=== PATIENT | male | born 1990 | race Caucasian/White ===

== ENCOUNTER → 2019-12-17 | Outpatient (CLI) | payer OTHER ==
--- NOTE | 2019-12-17 16:00 | XR ---
EXAMINATION TYPE: XR thoracic spine complete DATE OF EXAM: 12/17/2019 COMPARISON: None HISTORY: Thoracic strain TECHNIQUE: Three-view thoracic spine FINDINGS: There are 12 thoracic type vertebral bodies. Pedicles are intact. Disc heights are preserve d. Vertebral body heights are preserved. IMPRESSION: 1. Normal three-view thoracic spine
--- NOTE | 2019-12-17 16:02 | XR ---
EXAMINATION TYPE: XR lumbar spine 2 or 3V DATE OF EXAM: 12/17/2019 COMPARISON: None HISTORY: Back pain thoracic pain TECHNIQUE: Three-view lumbar spine FINDINGS: There 5 lumbar-type vertebral bodies. Pedicles are intact. Mild posterior disc space narrow ing at L5-S1 is present. Remaining disc heights are preserved. Vertebral body heights are preserved. IMPRESSION: 1. Minimal degenerative disc change L5-S1.
== END | disposition home or self-care (01) ==
LOC: RAD 14:52
PROVIDERS: ATTEND Emergency Medicine
DX: S23.3XXA Sprain of ligaments of thoracic spine, initial encounter (principal); M51.37 Other intervertebral disc degeneration, lumbosacral region
CPT/HCPCS: 72072; 72100

== ENCOUNTER 2020-01-04 02:45 | Emergency (ER) | payer BC ==
[2020-01-04 02:55] VITALS: BP 133/83; PULSE 80; RESP 18; TEMP 98.1
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
--- NOTE | 2020-01-04 03:21 | XR ---
EXAMINATION TYPE: XR hand complete RT DATE OF EXAM: 01/04/2020 COMPARISON: NONE HISTORY: Pain TECHNIQUE: 3 views FINDINGS: Metacarpals appear intact. Carpal bones appear intact. I see no fracture nor dislocation. T here is mild soft tissue swelling on the dorsum of the hand. The fingers appear intact. IMPRESSION: Soft tissue swelling. No fracture seen.
== END 2020-01-04 03:53 | disposition home or self-care (01) ==
LOC: EC 02:45
DX: S60.221A Contusion of right hand, initial encounter (principal); Z87.891 Personal history of nicotine dependence; W22.03XA Walked into furniture, initial encounter
CPT/HCPCS: 99283

== ENCOUNTER → 2020-09-21 | Outpatient (CLI) | payer OTHER ==
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
== END | disposition home or self-care (01) ==
LOC: RADXRMAIN 13:43
PROVIDERS: ATTEND Emergency Medicine
DX: S43.402A Unspecified sprain of left shoulder joint, initial encounter (principal); S33.5XXA Sprain of ligaments of lumbar spine, initial encounter
CPT/HCPCS: 72100